=== PATIENT | female | born 1985 | race Caucasian/White ===

== ENCOUNTER 2023-04-01 06:09 | Day surgery (SDC) | payer OTHER, SELFPAY ==
[2023-04-01] VITALS (8 sets, daily range): BP systolic 111–130; BP diastolic 7–81; PULSE 64–112; RESP 12–18; TEMP 34.7–37.1; O2SAT 95–100; BMI 23.1
[2023-04-01] MEDS: ACETAMINOPHEN 325 MG TABLET 975 MG PO (06:54)
--- NOTE | 2023-04-01 07:24 | SUR.OPER ---
Supine on padded OR bed, head on pillow, non op arm secured on padded arm board at <90 degrees abduction, legs uncrossed, safety belt at thigh, tape over blanket over lower legs. operative arm draped free on padded hand table
--- NOTE | 2023-04-01 07:25 | PM.PREOP ---
Pre-operative Note Interval Note History & Physical reviewed/Exam performed by Physician: Yes Changes to H&P: No
[2023-04-01] MEDS: LACTATED RINGERS 1,000 ML 42 ML IV (07:45)
[2023-04-01] MEDS: SCOPOLAMINE 1 PATCH TOP (07:46)
[2023-04-01] MEDS: CEFAZOLIN 2 GM/100 ML PREMIX 100 ML IV (08:05)
[2023-04-01] MEDS: BUPIVACAINE 0.25% (PF) 30 ML, EPINEPHrine 0.15 MG INJ (08:13)
--- NOTE | 2023-04-01 08:54 | DI.RAD.S_ITS ---
PROCEDURE: XR WRIST RT MIN 3V INDICATIONS: RIGHT WRIST FX REPAIR TECHNIQUE: 3 operative views of the wrist were acquired. COMPARISON: [facility] Outside Film, CR, XR WRIST 1 OR 2 VIEWS RIGHT, 03/21/2023, 0:24. FINDINGS: Operative imaging was utilized for performance of ORIF of a comminuted distal radius fracture. There is no radiographic evidence of complications. IMPRESSION: Operative imaging utilized for ORIF of a comminuted distal radial fracture radiographic evidence complications. Dictated by: Kurt Howell M.D. on 04/01/2023 at 10:51 Approved by: Kurt Howell M.D. on 04/01/2023 at 11:05
[2023-04-01] MEDS: MEPERIDINE 50 MG/ML INJ 25 MG IV (09:07)
--- NOTE | 2023-04-01 09:18 | PM.OP.1 ---
Operative Date/Time/Diagnoses Date of procedure: 04/01/23 Time of procedure: 09:18 Pre-op diagnosis: Right intra-articular distal radius fracture Post-op diagnosis: same Procedure & Clinicians Procedure: Open reduction internal fixation of a right intra-articular distal radius fracture. CPT code 49546 Same procedure as scheduled: Yes Indications: Intra-articular distal radius fracture Surgeon: Boubacar Gonzalez Click Yes if Unassisted: Yes Anesthesia Type: General Operative Notes Findings: Intra-articular distal radius fracture particularly involving the ulnar column. Closure Type: primary Applied: implant(s) (Arthrex distal radius set) Estimated Blood Loss (mL): 10 Tourniquet time (min): 53 Procedure in detail: On date of service, patient was met in the holding area where the operative site was signed and witnessed by the OR staff. The surgery was once again discussed with the patient and any remaining questions or concerns were answered to the patient's full satisfaction. Time-out was performed verifying patient's name procedure and operative site. Patient was taken back to the operating theater and placed on the operating table in a supine position. Great care was taken to ensure that all bony prominences were appropriately padded. Well-padded tourniquet was placed up along the upper extremity. Another time-out was performed verifying patient's name, procedure, and operative site. The upper extremity was then prepped and draped in the normal sterile fashion. Esmarch was used to exsanguinate the limb and the tourniquet was turned up to 250 mm of mercury. Fifteen blade was used to expose the distal radius. An incision was made over the FCR tendons. The FCR tendon was retracted and the floor of the tendon was opened with a 15 blade. The FPL tendon and muscle belly was retracted ulnarly giving us good visualization of the pronator quadratus. The pronator quadratus was excised off the distal radius using the 15 blade and then finished with a periosteal elevator. Next the brachia radialis attachment to the radial styloid was released to help with overall reduction. Retractors were placed allowing us good visualization of the distal radius as well as the shaft. A [place] elevator was placed into the fracture line involving the ulnar column and was used to elevate the ulnar column to reduce the articular step-off. K-wire was placed holding that ulnar fragment into position. Two point reduction forceps was then used to close down the gapping between the ulnar and radial column intra-articularly. C-arm was brought in to verify overall reduction. Once we were satisfied with the overall reduction, a plate was placed and held provisionally with K-wires. C-arm was once again used to verify plate positioning as well as reduction. The plate was then fixated to the distal fragment using locking screws. Lateral C-arm views were used to verify that the screws were not intra-articular or broaching the dorsal cortex. At this point we are able to use the plate to help fine tune the overall reduction. Once we were satisfied with the overall reduction the plate was then secured to the shaft with a combination of locking and nonlocking screws. Final x-rays were obtained. The wound was copiously irrigated and closed in a layered fashion. The wrist and hand were cleaned dried dressed. Patient was placed into a splint and taken to the PACU in stable condition. Complications: none Post-operative Condition: stable Disposition: PACU Plan for aftercare: Patient can begin [id number] exercises of the wrist in the next few days. No limits to range of motion of the wrist or fingers. No lifting more than 2-3 lb for the next 6 weeks.
[2023-04-01] MEDS: HYDROMORPHONE 1 MG INJ IV ×2 (09:24→09:29)
[2023-04-01] MEDS: OXYCODONE IR 5 MG TABLET PO ×2 (09:40→10:11)
== END 2023-04-01 10:15 | disposition home or self-care (01) ==
PROVIDERS: PCP Nurse Practitioner Family; Referring Provider Orthopaedic Surgery; Visit Provider Orthopaedic Surgery
PROC: (CPT 25609; principal; 2023-04-01 07:45)
DX: S52.531A Colles' fracture of right radius, initial encounter for closed fracture (principal); W18.39XA Other fall on same level, initial encounter; Y93.51 Activity, roller skating (inline) and skateboarding
CPT/HCPCS: 25609; 73110; 76000; 81025; C1713; J0171; J0690; J1100; J1170; J1885; J2175; J2250; J2405; J2704; J3010